=== PATIENT | female | born 1965 | race Caucasian/White ===

== ENCOUNTER 2020-07-18 05:35 | Day surgery (SDC) | payer BC ==
[~2020-07-18] VITALS: Ht 172.7 cm; Wt 60.5 kg
[~2020-07-18 05:35] MED LIST: B12 ACTIVE1000 MCG PO; DHEA 10 MG TAB1 EACH PO; IRON325 M1 PO; MULTI VITAMIN1 EACH PO; VITAMIN D3125 MC1 PO; ZYRTEC10 MG PO
--- NOTE | 2020-07-18 05:35 | NUR ---
PT ARRIVED TO THE UNIT WALKING INDEPENDENTLY ACCOMPANIED BY HER AND PLACED IN RM 2.
--- NOTE | 2020-07-18 06:12 | NUR ---
PRE OP INTAKE COMPLETE QUESTIONS AND CONCERNS DISCUSSED. PT RESTING IN LOCKED AND LOWERED BED, CALL LIGHT WITHIN REACH, AT THE BEDSIDE.
--- NOTE | 2020-07-18 07:05 | NUR ---
PT PRESSED THE CALL LIGHT. UP TO USE THE RESTROOM. PT AMBULATES INDEPENDENTLY AND VOIDS WITHOUT COMPLICATIONS. PT NOW RESTING IN LOCKED AND LOWERED BED, CALL LIGHT WITHIN REACH. AT THE BEDSIDE.
--- NOTE | 2020-07-18 07:30 | NUR ---
PT UP TO USE THE RESTROOM. AMBULATES INDEPENDENTLY AND VOIDS WITHOUT COMPLICATIONS. PT RESTING IN LOCKED AND LOWERED BED. CALL LIGHT WITHIN REACH. AT THE BEDSIDE.
--- NOTE | 2020-07-18 09:34 | NUR ---
07/18/20 0934 Tammy Bryant 0927- PT ARRIVES TO PACU AROUSABLE TO VOICE. PT NODS HER HEAD WHEN TOLD SHE IS IN THE RECOVERY ROOM. PT FALLS RIGHT BACK TO SLEEP. RESP EVEN AND UNLABORED. OXYGEN SAT HIGH 90'S TO 100% ON 6L VIA MASK.
--- NOTE | 2020-07-18 09:55 | NUR ---
PT ARRIVED FROM PACU. REPORT RECIEVED FROM TIANNA Damon RN. PT PROVIDED WITH WATER. RESTING IN LOCKED AND LOWERED BED, SIDE RAILS UP, CALL LIGHT WITHIN REACH, AT THE BEDSIDE.
--- NOTE | 2020-07-18 10:23 | NUR ---
PT UP TO USE THE RESTROOM WITH STANDBY ASSIST. PT AMBULATES AND VOIDS WITH NO COMPLICATIONS. PT RESTING IN LOCKED AND LOWERED BED, SIDE RAILS UP, CALL LIGHT WITHIN REACH, AT THE BEDSIDE. ICE WATER AND CRACKERS PROVIDED. NO FURTHER REQUESTS AT THIS TIME.
--- NOTE | 2020-07-18 12:01 | NUR ---
LE 1050: PATIENT REPORTS "I AM READY TO GO!" PATIENT IS GETTING DRESSED IN THE PRESENCE OF HER SPOUSE. LE 1120: PATIENT PUSHES HER CALL LIGHT AND REPORTS SHE IS READY TO GO. DISCHARGE INSTRUCTIONS ARE GIVEN IN THE PRESENCE OF HER SPOUSE AND BOTH VERBALIZE UNDERSTANDING. DRIP PAD IS CHANGED UNDER THE PATIENT'S NOSE AND SHE VERBALIZES UNDERSTANDING OF THAT EDUCATION. PATIENT TRANSFERS HERSELF TO THE WHEELCHAIR AND THEN TO PERSONAL VEHICLE AND SHE IS DISCHARGED HOME.
--- NOTE | 2020-07-22 11:55 | PATH ---
[facility] [address], [place] [address] Signed SPECIMEN(S): A LEFT SINUS CONTENTS SPECIMEN(S): B ADDITIONAL LEFT SINUS CONTENTS SPECIMEN SOURCE: A. LEFT SINUS CONTENTS B. ADDITIONAL LEFT SINUS CONTENTS CLINICAL HISTORY: Chronic sinusitis, history of nasal polyp. Endoscopic sinus surgery. FINAL PATHOLOGIC DIAGNOSIS: A. Sinus contents, left, sinusectomy: - Chronic allergic sinusitis. - Fragments of sinonasal inflammatory polyp(s). B. Additional sinus contents, left, sinusectomy: - Chronic allergic sinusitis. - Fragments of sinonasal inflammatory polyp(s). - Mucus retention cyst. - Fragments of viable bone with no histopathologic abnormality. NAL:cml:C2NR MICROSCOPIC EXAMINATION: Histologic sections of all submitted blocks are examined by light microscopy. Sections of specimens A and B are similar and demonstrate submucosal eosinophils up to 100 seen per high power field. These findings, together with the gross examination, support the pathologic diagnosis. GROSS DESCRIPTION: Two specimens are received in two containers, labeled "TP." A. The specimen, labeled "TP, left sinus contents," is received in formalin and consists of hemorrhagic tissue fragments that aggregate measure 3.2 x 2.5 x 0.7 cm. B. The specimen, labeled "TP, additional left sinus contents," is received in formalin and consists of irregular shaped membranous and hemorrhagic tissue fragments that aggregate measure 3.5 x 2.8 x 0.3 cm. Sulphate Tester sections are submitted in cassette (B1). JS (under the direct supervision of a pathologist) The Gross Description was prepared using a voice recognition system. The report was reviewed for accuracy; however, sound-alike word errors, addition and/or deletions may occur. If there is any PATIENT NAME: SHERMAN DEJESUS PATHOLOGY DATE OF : 69 REPORT #: [id number] PHYSICIAN: ANNA MARIE KASPER PCP: BRIDGETT MARRERO DC REPORT IS CONFIDENTIAL AND NOT TO BE RELEASED WITHOUT AUTHORIZATION [facility] [address] [address] Signed question about this report, please contact Client Services. PERFORMING LABORATORY: The technical [place] [address] (Metal Can Inspector: Rena Burris MD; CLIA# [id number]). [facility], [address] [address] (CLIA# [id number]). Diagnostician: Breana Owens MD Pathologist Electronically Signed 07/22/2020 Copies: ~ PATIENT NAME: SHERMAN DEJESUS PATHOLOGY DATE OF : 69 REPORT #: [id number] PHYSICIAN: ANNA MARIE KASPER PCP: BRIDGETT MARRERO DC REPORT IS CONFIDENTIAL AND NOT TO BE RELEASED WITHOUT AUTHORIZATION
--- NOTE | 2020-07-25 12:04 | OR ---
[facility] [address] [facility] [place] [place] [address] Signed DATE OF OPERATION: 07/18/2020 SURGEON: Alvin Sandy MD PREOPERATIVE DIAGNOSIS: Recurrent polyps, left-sided pansinusitis on that side. POSTOPERATIVE DIAGNOSIS: Recurrent polyps, left-sided pansinusitis on that side. PROCEDURES: 1. Left endoscopic frontal sinusotomy, 57679 second. 2. Left total ethmoidectomy, 37475. 3. Left endoscopic sphenoidotomy, 43591. 4. Removal of soft tissue or polyps at the left maxillary sinus, 04229. INDICATIONS: This is a 54-year-old female, who had sinus surgery by myself 25 years ago for the same problem. Over the last year, she has had left-sided obstruction and on examination in the office, it was found she has had nose full of polyps. CT scan was done, which showed unusual, the patient only had left-sided disease. Removal of the disease or the polyps was indicated also for biopsy to make sure she does not have inverting papillomas. DESCRIPTION OF PROCEDURE: The patient was placed in the supine position, had an orotracheal intubation, was placed under general anesthesia. After the patient had a routine prep and drape, the left side was photographed as well as the right side endoscopically, and also in the middle of the procedure and at the end of the procedure, she was photographed. All tissue was removed was sent to pathology for examination under the microscope. A microdebrider was used to do the initial volley of removal of all the polyps that were closing off the common nasal airway and the ostiomeatal unit. This was done after about a 1.5 mL lidocaine were injected into the septum and the lateral nasal wall. Also, a couple drops of Afrin were placed into either nostril prior to the surgery. Then, the dissection went straight back into the sphenoid removing polyps from the posterior ethmoids, the location or that which was in the way of the sphenoid sinus. Kerrison forceps was used to remove more the sphenoid sinus to make it more accessible as well as to rinse it out much fluids. There was hypertrophied or inflamed chronic inflammation in the sphenoid sinus. Then, the rest of the ethmoid labyrinth was evacuated of all polyps with microdebrider. Changing to the 70-degree scope, the Electronically Signed By: ALVIN SANDY MD 07/25/20 1204 PATIENT NAME: SHERMAN DEJESUS OPERATIVE REPORT DATE OF : 69 REPORT #: [id number] PHYSICIAN: ALVIN SANDY MD PCP: BRIDGETT MARRERO DC REPORT IS CONFIDENTIAL AND NOT TO BE RELEASED WITHOUT AUTHORIZATION [address] [address] Signed frontal sinus Kerrison punch was used to thread into the frontal sinus opening up wider and removing all of the polyps. The curved blade on the microdebrider assisted in removing absolutely all polypoid tissue and opening up the frontal sinus, the superior and anterior ethmoid labyrinth at the base of skull. The last of the surgical effort was spent on fishing all of the polyp out of the maxillary sinus. That ostium was widened as much as possible down to the body of the inferior turbinates and making sure that the anterior most part of the ostium was opened, removing all of the uncinate process. The 70-degree scope was used to visualize the maxillary sinus using a long upbiting forceps, the microdebrider with a curved blade, and the frontal sinus sagittal instrument to remove all of the polyps and polypoid tissue out of the maxillary sinus. Good visualization was obtained and the dissection proceeded well with removal of tissue. Once again, all tissue was sent to pathology. Estimated blood loss was about 150 mL, no packing required. The patient was awakened, sent to Recovery in good condition. No packing was required and no nasal port was placed either. Alvin Sadny MD [facility] /[id number] Copies: ~ Electronically Signed By: ALVIN SANDY MD 07/25/20 1204 PATIENT NAME: SHERMAN DEJESUS OPERATIVE REPORT DATE OF : 69 REPORT #: [id number] PHYSICIAN: ALVIN SANDY MD PCP: BRIDGETT MARRERO DC REPORT IS CONFIDENTIAL AND NOT TO BE RELEASED WITHOUT AUTHORIZATION
== END 2020-07-18 11:35 | disposition home or self-care (01) ==
LOC: OPS 05:35 → DS 05:35 → OPS 06:45 → DS 06:45 → OPS 11:35
PROVIDERS: ATTEND Otolaryngology
PROC: 09TV8ZZ Resection of Left Ethmoid Sinus, Via Natural or Artificial Opening Endoscopic (ICD-10-PCS; 2020-07-18)
PROC: 09BR8ZZ Excision of Left Maxillary Sinus, Via Natural or Artificial Opening Endoscopic (ICD-10-PCS; principal; 2020-07-18 06:45)
DX: J33.8 Other polyp of sinus (principal); J30.9 Allergic rhinitis, unspecified; J34.1 Cyst and mucocele of nose and nasal sinus; J32.4 Chronic pansinusitis; Z79.899 Other long term (current) drug therapy; Z88.5 Allergy status to narcotic agent; Z88.2 Allergy status to sulfonamides
CPT/HCPCS: 00160; J1100; J2405; J2704; J3010; J3475; J3490; J7121